=== PATIENT | male | born 1995 | race Caucasian/White ===

== ENCOUNTER 2019-01-31 10:26 | Inpatient (IN) | payer SELFPAY ==
[2019-01-31] MEDS ORDERED: CLINDAMYCIN 600 MG/D5W RTU 600 MG/50 ML RTUPB IV ONE (10:46)
[2019-01-31] MEDS ORDERED: ACETAMINOPHEN 325 MG TABLET PO ONE (10:47)
--- NOTE | 2019-01-31 10:50 | ER Document Report ---
ED Medical Screen (RME) - General Chief Complaint: Hand Injury Stated Complaint: HAND PAIN Time Seen by Provider: 01/31/19 10:39 Mode of Arrival: Ambulatory Information source: Patient Notes: Patient is a 23-year-old male who presents to the emergency department with complaints of right hand pain. Patient reports he thought he had an abscess to his right hand. He states he went to another hospital yesterday and had it drained. He states that not much drained out at the time. They gave him a dose of Keflex and discharged him home. Patient reports he has not had his medications filled and the pain and swelling has increased significantly since then. Patient denies any fevers. Exam: Significant swelling to right hand. Limited range of motion to right hand. Strong radial pulse. Cap refill less than 3 seconds. Patient reports allergies to multiple pain medications and has a small child present with him that he is responsible for. Will order acetaminophen at this time. I have greeted and performed a rapid initial assessment of this patient. A comprehensive ED assessment and evaluation of the patient, analysis of test results and completion of the medical decision making process will be conducted by additional ED providers. Dictation of this chart was performed using voice recognition software; therefore, there may be some unintended grammatical errors. TRAVEL OUTSIDE OF THE [place] IN LAST 30 DAYS: No - Related Data Allergies/Adverse Reactions: Iodinated Contrast- Oral and IV Dye Allergy (Verified 01/31/19 10:32) Flushing latex Allergy (Verified 01/31/19 10:32) Urticaria prednisone Allergy (Verified 01/31/19 10:32) Bradycardia hydrocodone Adverse Reaction (Mild, Verified 01/31/19 10:32) Generalized Itching ketorolac [From Toradol] Adverse Reaction (Mild, Verified 01/31/19 10:32) Generalized Itching tramadol [From Ultram] Adverse Reaction (Mild, Verified 01/31/19 10:32) Generalized Itching Physical Exam - Vital signs Vitals: Temp Pulse Resp BP Pulse Ox 98.6 F 110 H 16 147/82 H 98 01/31/19 10:35 01/31/19 10:35 01/31/19 10:35 01/31/19 10:35 01/31/19 10:35 Course - Vital Signs Vital signs: Temp Pulse Resp BP Pulse Ox 98.6 F 110 H 16 147/82 H 98 01/31/19 10:35 01/31/19 10:35 01/31/19 10:35 01/31/19 10:35 01/31/19 10:35
--- NOTE | 2019-01-31 11:21 | RADIOLOGY REPORT (SQ) ---
EXAM DESCRIPTION: HAND RIGHT 3 VIEWS COMPLETED DATE/TIME: 01/31/2019 11:02 am REASON FOR STUDY: eval for osteomyelitis COMPARISON: None. EXAM PARAMETERS: NUMBER OF VIEWS: Three views. TECHNIQUE: AP, lateral and oblique radiographic images acquired of the right hand. LIMITATIONS: None. FINDINGS: MINERALIZATION: Normal. BONES: No acute fracture, destruction of bone, or dislocation. No worrisome bone lesions. JOINTS: No effusions. SOFT TISSUES: No soft tissue swelling. No foreign body. OTHER: No other significant finding. IMPRESSION: 1. NEGATIVE STUDY OF THE RIGHT HAND. TECHNICAL DOCUMENTATION: JOB ID: [id number] [employer]- All Rights Reserved Reading location - IP/workstation name: [email or web address]
[2019-01-31 11:40] LABS: ABSOLUTE BASOPHILS # (AUTO) 0.1 10^3/uL (0.0-0.2); ABSOLUTE EOSINOPHILS # (AUTO) 0.4 10^3/uL (0.0-0.6); ABSOLUTE LYMPHOCYTES (AUTO) 2.9 10^3/uL (0.5-4.7); ABSOLUTE NEUT (AUTO) 7.9 10^3/uL (1.7-8.2); BASOPHILS % (AUTO) 0.9 % (0-2); EOSINOPHILS % (AUTO) 3.1 % (0-6); HEMATOCRIT 38.1 % (37.9-51.0); HEMOGLOBIN 13.4 g/dL (13.5-17.0); LYMPHOCYTES % (AUTO) 23.4 % (13-45); MEAN CORPUSCULAR HEMOGLOBIN 30.4 pg (27.0-33.4); MEAN CORPUSCULAR HGB CONC 35.3 g/dL (32.0-36.0); MEAN CORPUSCULAR VOLUME 86 fl (80-97); MONOCYTES % (AUTO) 8.4 % (3-13); PLATELET COUNT 285 10^3/uL (150-450); RED BLOOD COUNT 4.42 10^6/uL (4.35-5.55); RED CELL DISTRIBUTION WIDTH 13.2 % (11.5-14.0); SEGMENTED NEUTROPHILS % (AUTO) 64.2 % (42-78); TOTAL CELLS COUNTED % (AUTO) 100 %; WHITE BLOOD COUNT 12.3 10^3/uL (4.0-10.5)
[2019-01-31] MEDS ORDERED: MORPHINE SULFATE 10 MG/ML INJ IV ONE (11:40)
[2019-01-31] MEDS ORDERED: ONDANSETRON HCL INJ/PF 4 MG/2 ML SDV IV ONE (11:40)
[2019-01-31 11:57] LABS: ALANINE AMINOTRANSFERASE 18 U/L (21-72); ALBUMIN 4.2 g/dL (3.5-5.0); ALKALINE PHOSPHATASE 74 U/L (38-126); ANION GAP 8 (5-19); ASPARTATE AMINO TRANSFERASE 25 U/L (17-59); BILIRUBIN,DIRECT 0.3 mg/dL (0.0-0.4); BILIRUBIN,TOTAL 0.4 mg/dL (0.2-1.3); BLOOD UREA NITROGEN 20 mg/dL (7-20); C-REACTIVE PROTEIN 34.2 mg/L (<10.0); CALCIUM 9.4 mg/dL (8.4-10.2); CARBON DIOXIDE 26 mmol/L (22-30); CHLORIDE 103 mmol/L (98-107); GLUCOSE 90 mg/dL (75-110); POTASSIUM 4.4 mmol/L (3.6-5.0); SODIUM 136.8 mmol/L (137-145); TOTAL PROTEIN 7.2 g/dL (6.3-8.2)
[2019-01-31 12:17] LABS: ERYTHROCYTE SEDIMENTATION RATE 24 mm/hr (0-15)
[2019-01-31] MEDS ORDERED: HYDROMORPHONE HCL INJ/PF 2 MG/ML AMPULE IV ONE ×2 (12:39→16:14)
[2019-01-31] MEDS ORDERED: SUCCINYLCHOLINE CHLORIDE INJ 200 MG/10 ML VIAL ONE (13:55)
--- NOTE | 2019-01-31 15:13 | ER Document Report ---
Entered by JAMES WILKINS SCRIBE 01/31/19 1138 Acting as scribe for:SENTHIL MASON MD ED General - General Chief Complaint: Hand Injury Stated Complaint: HAND PAIN Time Seen by Provider: 01/31/19 10:39 Mode of Arrival: Ambulatory Information source: Patient Notes: Patient is a 23 year old male presenting to the emergency department complaining of right hand pain onset 2 days ago. Patient states he obtained a blister on the palmar aspect of his right hand on January 07 while using a rehan hammer. He states 2 days ago, he accidentally hit the blister with a crowbar and gradually developed pain and swelling to the area. Patient states he presented to [facility] yesterday where a superficial incision was made and blood was expressed from the area. He states today, the pain and swelling has significantly increased further stating he can not close his fist or move his fingers due to pain. TRAVEL OUTSIDE OF THE [place] IN LAST 30 DAYS: No - Related Data Allergies/Adverse Reactions: Iodinated Contrast- Oral and IV Dye Allergy (Verified 01/31/19 10:32) Flushing latex Allergy (Verified 01/31/19 10:32) Urticaria prednisone Allergy (Verified 01/31/19 10:32) Bradycardia hydrocodone Adverse Reaction (Mild, Verified 01/31/19 10:32) Generalized Itching ketorolac [From Toradol] Adverse Reaction (Mild, Verified 01/31/19 10:32) Generalized Itching tramadol [From Ultram] Adverse Reaction (Mild, Verified 01/31/19 10:32) Generalized Itching Past Medical History - General Information source: Patient - Social History Smoking Status: Current Every Day Smoker Cigarette use (# per day): No - E-cig Chew tobacco use (# tins/day): No Frequency of alcohol use: None Drug Abuse: None Family History: Reviewed & Not Pertinent Patient has suicidal ideation: No Patient has homicidal ideation: No Pulmonary Medical History: Reports: Hx Asthma - Childhood Neurological Medical History: Reports: Hx Migraine GI Medical History: Reports: Hx Gastroesophageal Reflux Disease Past Surgical History: Reports: Hx Appendectomy, Hx Nose Surgery - reconstructive surgery to nose d/t fracture Review of Systems - Review of Systems Constitutional: No symptoms reported EENT: No symptoms reported Cardiovascular: No symptoms reported Respiratory: No symptoms reported Gastrointestinal: No symptoms reported Genitourinary: No symptoms reported Male Genitourinary: No symptoms reported Musculoskeletal: See HPI Skin: No symptoms reported Hematologic/Lymphatic: No symptoms reported Neurological/Psychological: No symptoms reported -: Yes All other systems reviewed and negative Physical Exam - Vital signs Vitals: Temp Pulse Resp BP Pulse Ox 98.6 F 110 H 16 147/82 H 98 01/31/19 10:35 01/31/19 10:35 01/31/19 10:35 01/31/19 10:35 01/31/19 10:35 - Notes Notes: GENERAL: Alert, interacts well. No acute distress. HEAD: Normocephalic, atraumatic. EYES: Pupils equal, round, and reactive to light. Extraocular movements intact. ENT: Oral mucosa moist, tongue midline. NECK: Full range of motion. Supple. Trachea midline. LUNGS: Clear to auscultation bilaterally, no wheezes, rales, or rhonchi. No respiratory distress. HEART: Regular rate and rhythm. No murmurs, gallops, or rubs. ABDOMEN: Soft, non-tender. Non-distended. Bowel sounds present in all 4 gayathri drants. No guarding, rigidity, or rebound. EXTREMITIES: Moves all 4 extremities spontaneously. Right thenar eminence contains a swollen, firm erythematous area with blistering skin, which appears to have been partially opened and is tender to palpate. Patient complains of pain in right distal volar wrist with extension of right index and 1st fingers. Tender to palpate right flexor tendons, passive flexion of right fingers cause more pain. NEUROLOGICAL: Alert and oriented x3. Normal speech. PSYCH: Normal affect, normal mood. SKIN: Warm, dry, normal turgor. No rashes or lesions noted. Course - Vital Signs Vital signs: Temp Pulse Resp BP Pulse Ox 97.4 F 84 20 125/78 98 01/31/19 15:51 01/31/19 15:51 01/31/19 15:51 01/31/19 15:51 01/31/19 15:51 - Laboratory Result Diagrams: 01/31/19 11:09 01/31/19 11:09 Laboratory results interpreted by me: 01/31/19 01/31/19 11:09 11:09 WBC 12.3 H Hgb 13.4 L ESR 24 H Sodium 136.8 L ALT 18 L C-Reactive Protein 34.2 H - Diagnostic Test Radiology reviewed: Image reviewed - MRI shows an 8 mm pocket of fluid in the superficial fat. There is enhancement of the thenar muscle suggesting a myositis. There is enhancement along the flexor tendons going to the index finger and thumb. - Consults Dr. Hester Time consulted: 16:00 Consulted provider: will see as inpatient Discharge - Discharge Clinical Impression: Abscess of right hand, Flexor tendinitis of hand Condition: Stable Disposition: ADMITTED INPATIENT Admitting Provider: Dr. Hester Unit Admitted: Surgical Floor Scribe Attestation: 01/31/19 13:19 I personally performed the services described in the documentation, reviewed and edited the documentation which was dictated to the scribe in my presence, and it accurately records my words and actions. I personally performed the services described in the documentation, reviewed and edited the documentation which was dictated to the scribe in my presence, and it accurately records my words and actions.
--- NOTE | 2019-01-31 16:12 | RADIOLOGY REPORT (SQ) ---
EXAM DESCRIPTION: MRI RT UPPER EXTREMITY COMBO COMPLETED DATE/TIME: 01/31/2019 3:40 pm REASON FOR STUDY: Right hand deep space thenar infection COMPARISON: Right hand plain films 01/31/2019 TECHNIQUE: Right hand MRI was performed without and with gadolinium contrast to include axial and co [place] T1 pre and post-contrast images, coronal and axial T2 weighted images. Patient would not tolerate further imaging. Patient was injected with 15 mL of Dotarem gadolinium. Estimated GFR greater than 60 LIMITATIONS: None. FINDINGS: Diffuse cellulitis is present over the right thenar eminence, extending into the soft ti ssue web between the thumb and index finger. On axial T1 postcontrast series 14, image 13, a tiny br eak in the palmar skin is present, with an 8 to 9 mm nonenhancing subcutaneous abscess or hematoma. There is diffuse enhancement throughout the thenar muscles without intramuscular abscess. Distal to the carpal tunnel, there is mild contrast enhancement along the flexor tendon sheaths to th e index finger and thumb. This is best shown on axial postcontrast images 14 through 18. No underlying bone marrow signal abnormalities worrisome for occult fracture or osteomyelitis. Limit ed view of the radiocarpal joint, intercarpal joints, carpometacarpal and MCP joints in the field of view are unremarkable. Results discussed with Dr. Menjivar IMPRESSION: Cellulitis right thenar eminence with small 8 to 9 mm subcutaneous abscess or hematoma Underlying myositis with diffuse enhancement of the thenar muscles Mild contrast enhancement along the flexor tendon sheath of the index finger and thumb distal to the carpal tunnel. TECHNICAL DOCUMENTATION: JOB ID: [id number] [employer]- All Rights Reserved Reading location - IP/workstation name: [email or web address]
--- NOTE | 2019-01-31 17:43 | PDOC H&P ---
History of Present Illness Admission Date/PCP: 01/31/19 16:13 Patient complains of: Right hand pain History of Present Illness: LYNDON LOVE is a 23 year old male who sustained injury to his hand months ago from a jackhammer that caused a blister. And then recently he injured his hand again with a crowbar. The hand began swelling much worse. Was seen at the [facility] emergency room where a very limited I&D apparently was performed since then has had increasing pain along the palm of his hand with significant tightness along with erythema which has tracked up into his forearm. Notes numbness and tingling along the tips of the digits. Has had chills and sweats as well. Pain 08/04. Past Medical History Pulmonary Medical History: Reports: Asthma - Childhood Neurological Medical History: Reports: Migraine GI Medical History: Reports: Gastroesophageal Reflux Disease Past Surgical History Past Surgical History: Reports: Appendectomy Social History Smoking Status: Current Every Day Smoker Family History Family History: Reviewed & Not Pertinent Parental Family History Reviewed: No Children Family History Reviewed: No Sibling(s) Family History Reviewed.: No Medication/Allergy Home Medications: No Home Medications 01/31/19 Allergies/Adverse Reactions: Iodinated Contrast- Oral and IV Dye Allergy (Verified 01/31/19 10:32) Flushing latex Allergy (Verified 01/31/19 10:32) Urticaria prednisone Allergy (Verified 01/31/19 10:32) Bradycardia hydrocodone Adverse Reaction (Mild, Verified 01/31/19 10:32) Generalized Itching ketorolac [From Toradol] Adverse Reaction (Mild, Verified 01/31/19 10:32) Generalized Itching tramadol [From Ultram] Adverse Reaction (Mild, Verified 01/31/19 10:32) Generalized Itching Review of Systems Constitutional: PRESENT: fever(s), night sweats Eyes: ABSENT: visual disturbances Ears: ABSENT: hearing changes Cardiovascular: ABSENT: chest pain, dyspnea on exertion, edema, orthropnea, palpitations Respiratory: ABSENT: cough, hemoptysis Gastrointestinal: ABSENT: abdominal pain, constipation, diarrhea, hematemesis, hematochezia, nausea, vomiting Genitourinary: ABSENT: dysuria, hematuria Musculoskeletal: PRESENT: as per HPI Integumentary: ABSENT: rash, wounds Neurological: ABSENT: abnormal gait, abnormal speech, confusion, dizziness, focal weakness, syncope Psychiatric: ABSENT: anxiety, depression, homidical ideation, suicidal ideation Endocrine: ABSENT: cold intolerance, heat intolerance, menstrual abnormalities, polydipsia, polyuria Hematologic/Lymphatic: ABSENT: easy bleeding, easy bruising, lymphadenopathy Physical Exam Vital Signs: Temp Pulse Resp BP Pulse Ox 97.4 F 84 20 125/78 98 01/31/19 15:51 01/31/19 15:51 01/31/19 15:51 01/31/19 15:51 01/31/19 15:51 Intake & Output 01/30/19 01/31/19 02/01/19 06:59 06:59 06:59 Intake Total 50 Balance 50 Weight 92.2 kg General appearance: PRESENT: no acute distress, well-developed, well-nourished Head exam: PRESENT: atraumatic, normocephalic Eye exam: PRESENT: conjunctiva pink, EOMI, PERRLA. ABSENT: scleral icterus Ear exam: PRESENT: normal external ear exam Mouth exam: PRESENT: moist, tongue midline Neck exam: PRESENT: full ROM. ABSENT: carotid bruit, JVD, lymphadenopathy, thyromegaly Cardiovascular exam: PRESENT: RRR. ABSENT: diastolic murmur, rubs, systolic murmur Pulses: PRESENT: normal dorsalis pedis pul, +2 pedal pulses bilateral Vascular exam: PRESENT: normal capillary refill GI/Abdominal exam: PRESENT: normal bowel sounds, soft. ABSENT: distended, guarding, mass, organolmegaly, rebound, tenderness Rectal exam: PRESENT: deferred Musculoskeletal exam: PRESENT: other - Right hand: Significant swelling on the thenar eminence. Mild pain along the A1 rachel to the index finger along the flexor sheath of the thumb. No active purulence. Palpable fluctuance along the thenar eminence. No tenderness along the hypo-thenar eminence. Hypoesthesia on the distal tip of the index, middle and small finger. Cap refill less than 2 seconds. No pain with passive stretch of the middle ring and small finger pain with stretch of the index. Neurological exam: PRESENT: alert, awake, oriented to person, oriented to place, oriented to time, oriented to situation, CN II-XII grossly intact. ABSENT: motor sensory deficit Psychiatric exam: PRESENT: appropriate affect, normal mood. ABSENT: homicidal ideation, suicidal ideation Skin exam: PRESENT: dry, intact, warm. ABSENT: cyanosis, rash Results Laboratory Results: 01/31/19 11:09 01/31/19 11:09 01/31/19 01/31/19 11:09 11:09 WBC 12.3 H RBC 4.42 Hgb 13.4 L Hct 38.1 MCV 86 MCH 30.4 MCHC 35.3 RDW 13.2 Plt Count 285 Seg Neutrophils % 64.2 Lymphocytes % 23.4 Monocytes % 8.4 Eosinophils % 3.1 Basophils % 0.9 Absolute Neutrophils 7.9 Absolute Lymphocytes 2.9 Absolute Monocytes 1.0 Absolute Eosinophils 0.4 Absolute Basophils 0.1 Sodium 136.8 L Potassium 4.4 Chloride 103 Carbon Dioxide 26 Anion Gap 8 BUN 20 Creatinine 0.78 Est GFR ( Amer) > 60 Est GFR (Non-Af Amer) > 60 Glucose 90 Calcium 9.4 Total Bilirubin 0.4 AST 25 ALT 18 L Alkaline Phosphatase 74 C-Reactive Protein 34.2 H Total Protein 7.2 Albumin 4.2 Impressions: Hand X-Ray 01/31/19 10:47 IMPRESSION: 1. NEGATIVE STUDY OF THE RIGHT HAND. Upper Extremity MRI 01/31/19 11:36 IMPRESSION: Cellulitis right thenar eminence with small 8 to 9 mm subcutaneous abscess or hematoma Underlying myositis with diffuse enhancement of the thenar muscles Mild contrast enhancement along the flexor tendon sheath of the index finger and thumb distal to the carpal tunnel. Assessment & Plan - Diagnosis (1) Abscess of right hand Is this a current diagnosis for this admission?: Yes Plan: Patient has evidence of a thenar abscess there is concern this could proceed to Parona's space causing worsening infection and limb threatening injury. At this point we have discussed treatment options and decision was made to proceed with operative intervention which includes irrigation and debridement right hand. Risks and benefits of the surgery procedure, postoperative outcomes and expectations of also been explained. Patient will require IV antibiotics until cultures are finalized and patient is seeing clinical improvement. Patient has verbalized understanding consented for surgical procedure.
[2019-01-31] MEDS ORDERED: DEXTROSE 40% GEL 15 GM TUBE PO PRN ×2 (17:44)
[2019-01-31] MEDS ORDERED: GLUCAGON,HUMAN RECOMB 1 MG INJ SUBCUT PRN (17:44)
[2019-01-31] MEDS ORDERED: DEXTROSE 50%-WATER 25 GM/50 ML DISP.SYRIN IV PRN ×2 (17:44)
[2019-01-31] MEDS ORDERED: ONDANSETRON HCL INJ/PF 4 MG/2 ML SDV IV PRN ×2 (17:46→18:35)
[2019-01-31] MEDS ORDERED: FENTANYL CITRATE INJ/PF 100 MCG/2 ML AMPUL ONE (17:50)
[2019-01-31] MEDS ORDERED: PROPOFOL INJ 200 MG/20 ML VIAL IV ONE (17:50)
[2019-01-31] MEDS ORDERED: MIDAZOLAM 2 MG/2 ML INJ ONE (17:50)
[2019-01-31] MEDS ORDERED: LIDOCAINE 2% INJ (20 MG/ML) 20 ML MDV ONE (17:52)
[2019-01-31] MEDS ORDERED: BUPIVACAINE HCL 0.5 % INJ/PF 30 ML SDV ONE (18:19)
[2019-01-31] MEDS ORDERED: MORPHINE SULFATE 10 MG/ML INJ IV PRN (18:35)
[2019-01-31] MEDS ORDERED: FENTANYL CITRATE INJ/PF 100 MCG/2 ML AMPUL IV PRN ×3 (18:35)
[2019-01-31] MEDS ORDERED: PROMETHAZINE HCL INJ 25 MG/1 ML VIAL IV PRN ×2 (18:35)
[2019-01-31] MEDS ORDERED: DIPHENHYDRAMINE HCL 50 MG/ML VIAL IV PRN (18:35)
[2019-01-31] MEDS ORDERED: MEPERIDINE HCL/PF INJ 25 MG/1 ML DISP.SYRIN IV PRN (18:35)
[2019-01-31] MEDS ORDERED: HYDROMORPHONE HCL INJ/PF 2 MG/ML AMPULE ONE (18:38)
--- NOTE | 2019-01-31 19:08 | Operative Report ---
Operative Report DATE OF SURGERY: 01/31/19 PREOPERATIVE DIAGNOSIS: Right thenar abscess POSTOPERATIVE DIAGNOSIS: Right thenar abscess with early flexor tenosynovitis index/thumb, palmar abscess along carpal tunnel OPERATION: 1. Irrigation debridement debridement thenar abscess. 2. Open carpal tunnel release. 3. Irrigation debridement tendon sheath index finger SURGEON: ROMMEL PAINTING ANESTHESIA: GA TISSUE REMOVED OR ALTERED: Aerobic, anaerobic, AFB and fungal COMPLICATIONS: None ESTIMATED BLOOD LOSS: Minimal INTRAOPERATIVE FINDINGS: Purulent abscess along the subcutaneous tissues tracking deep into the thenar musculature with extension into the index flexor sheath, carpal canal and FPL sheath PROCEDURE: Indication for above procedure: 23-year-old male who developed a blister along the palm of his hand unfortunately continued to increase in size causing considerable pain and di scomfort. On examination patient had fairly swollen thenar eminence consistent with thenar abscess at that point decision was made to proceed with operative intervention. Procedure In Detail: Patient was seen and evaluated in the preoperative holding area. The upper extremity was initialized and marked. Patient received clindamycin IV for bacterial prophylaxis, in the ER. Patient was taken back to the operative room where transferred to the operative table and placed under general anesthesia. Once they were adequately anesthetized a nonsterile tourniquet was placed on the upper extremity. A surgical team debriefing was performed ensuring all instrumentation was available, the surgical procedure was discussed with possible concerns reviewed. The upper extremity was prepped with Betadine and draped in a sterile fashion. A timeout was done identifying correct patient, procedure and extremity everyone in attendance agree with this and verbalized no concerns. The extremity was elevated the tourniquet was inflated to 250 mmHg. Longitudinal skin incision was made along the thenar eminence. Blunt dissection was performed. Purulent material was encountered within the subcutaneous tissues however sinus tract was followed deep into the FPL tendon sheath. Incision was then extended over the A1 archel of the thumb and the A1 rachel release decompressing fluid within the flexor sheath of the FPL tendon. This area was then copiously irrigated with normal saline and any residual fluid within the sheath was milked from distal to proximal there is no further fluid within the flexor sheath appreciated at this level. Separate oblique skin incision was made along the A1 rachel of the index finger. Blunt dissection was once again performed radial and ulnar neurovascular bun dles identified and retracted. The A1 rachel was then released there was cloudy appearing fluid within the sheath extending from a proximal to distal direction there was no fluid appreciated from a distal to proximal direction. This area was copiously irrigated with normal saline once again. Given the extensive nature of the thenar eminence abscess and fluid within the index and thumb decision was made to proceed with open carpal tunnel release. Longitudinal skin incision was made along the radial border of the ring finger. Blunt dissection was performed. Palmar fascia was then incised in the transverse carpal ligament identified. Transverse carpal ligament was then released distally to the adipose protecting the superficial palmar arch and proximally including the volar antebrachial fascia. Within the flexor sheath there is significant flexor tenosynovitis and thus flexor tenosynovectomy was performed. There was cloudy appearing fluid but no gross purulence at this level. Wound was then copiously irrigated with normal saline and tenosynovium was sent for culture as well. Median nerve was identified along the radial border of the transverse carpal ligament without evidence of involvement. Any peripheral bleeding was controlled with bipolar cautery. Matt drain was then placed from the thenar eminence into the carpal canal and from the thenar eminence into the index finger. Skin incisions were closed with interrupted 3-0 nylon suture. 30 cc of 0.5% bupivacaine without epinephrine was injected for postoperative pain control. Wound was dressed Xeroform 4 x 4's and a soft dressing. Tourniquet was deflated. Patient good peripheral perfusion. Sponge counts, instrument counts, needle counts were correct. Patient was then awoken from anesthesia. Transferred from the operating room table to the operating room stretcher. There was no intraoperative complications patient tolerated procedure well stable to PACU. Postop plan: Patient will be admitted for IV antibiotics times 24 hours. Once cultures complete and sensitivities known will likely discharge home on p.o. antibiotics.
[2019-01-31] MEDS: MORPHINE SULFATE 10 MG/ML INJ IV PRN (20:55)
[2019-01-31] MEDS: PIPERACILLIN SODIUM/TAZOBACTAM 3.375 GM in NORMAL SALINE 100 ML IV SCH (21:13)
[2019-01-31] MEDS: OXYCODONE-ACETAMINOPHEN 5-325 MG TABLET PO PRN (22:23)
[2019-01-31] MEDS: VANCOMYCIN HCL 1,000 MG in DEXTROSE 5%-WATER 250 ML IV SCH (22:26)
[2019-02-01] MEDS ORDERED: PIPERACILLIN/TAZOBACTAM 3.375 GM VIAL IV SCH
[2019-02-01] MEDS: MORPHINE SULFATE 10 MG/ML INJ IV PRN (01:05)
[2019-02-01] MEDS: OXYCODONE-ACETAMINOPHEN 5-325 MG TABLET PO PRN ×2 (02:57→20:29)
[2019-02-01] MEDS: PIPERACILLIN SODIUM/TAZOBACTAM 3.375 GM in NORMAL SALINE 100 ML IV SCH ×4 (02:58→20:30)
[2019-02-01] MEDS ORDERED: HYDROMORPHONE HCL INJ/PF 2 MG/ML AMPULE ONE (03:11)
[2019-02-01] MEDS: HYDROMORPHONE HCL INJ/PF 2 MG/ML AMPULE IV PRN ×5 (03:14→23:38)
[2019-02-01] MEDS: VANCOMYCIN HCL 1,000 MG in DEXTROSE 5%-WATER 250 ML IV SCH ×3 (05:44→21:31)
[2019-02-01 07:33] LABS: ABSOLUTE BASOPHILS # (AUTO) 0.1 10^3/uL (0.0-0.2); ABSOLUTE EOSINOPHILS # (AUTO) 0.1 10^3/uL (0.0-0.6); ABSOLUTE LYMPHOCYTES (AUTO) 1.7 10^3/uL (0.5-4.7); ABSOLUTE NEUT (AUTO) 11.4 10^3/uL (1.7-8.2); BASOPHILS % (AUTO) 0.5 % (0-2); EOSINOPHILS % (AUTO) 0.8 % (0-6); HEMATOCRIT 39.3 % (37.9-51.0); HEMOGLOBIN 13.6 g/dL (13.5-17.0); MEAN CORPUSCULAR HEMOGLOBIN 30.2 pg (27.0-33.4); MEAN CORPUSCULAR HGB CONC 34.7 g/dL (32.0-36.0); MEAN CORPUSCULAR VOLUME 87 fl (80-97); MONOCYTES % (AUTO) 7.2 % (3-13); PLATELET COUNT 276 10^3/uL (150-450); RED BLOOD COUNT 4.52 10^6/uL (4.35-5.55); RED CELL DISTRIBUTION WIDTH 12.8 % (11.5-14.0); SEGMENTED NEUTROPHILS % (AUTO) 79.5 % (42-78); TOTAL CELLS COUNTED % (AUTO) 100 %; WHITE BLOOD COUNT 14.3 10^3/uL (4.0-10.5)
[2019-02-01] MEDS ORDERED: VANCOMYCIN HCL INJ 1000 MG VIAL IV SCH (10:00)
[2019-02-01] MEDS: OXYCODONE HCL SR 10 MG TABLET PO SCH ×2 (10:52→18:31)
--- NOTE | 2019-02-01 12:43 | PDOC PROGRESS REPORT ---
Subjective Progress Note for:: 02/01/19 Subjective:: Patient states he had considerable pain earlier this morning but that has improved after loosening the bandage. Denies fever chills or sweats. Still complains of numbness tingling and pressure in his digits which is relatively unchanged compared to preoperative subjective symptoms. Reason For Visit: RIGHT HAND ABSCESS Physical Exam Vital Signs: Temp Pulse Resp BP Pulse Ox 99.8 F 93 16 130/82 H 94 02/01/19 11:50 02/01/19 11:50 02/01/19 11:50 02/01/19 11:50 02/01/19 11:50 Pulse Oximeter Continuous Start: 01/31/19 20 :32 Freq: RTQ4 Status: Complete Protocol: Document 01/31/19 20:25 [facility] (Rec: 01/31/19 20:34 [facility] [id number]) Pulse Oximetry Assessment Oxygen Saturation (92-100) 98 Oxygen Delivery Method Room Air Fraction of Inspired Oxygen (FIO2) 21 Equipment Usage Initial Set Up Continuous Pulse Oximeter 24 Hour Charge Charge Now Continuous SpO2 Machine # 13 Pulse Oximeter Continuous Start: 01/31/19 19:48 Freq: RTQ4 Status: Active Protocol: Document 02/01/19 08:54 [facility] [place] (Rec: 02/01/19 08:56 [facility] [id number]) Pulse Oximetry Assessment Oxygen Saturation (92-100) 97 Oxygen Delivery Method Room Air Fraction of Inspired Oxygen (FIO2) 21 Equipment Usage Equipment in Use Continuous Pulse Oximeter 24 Hour Charge Charge Now Continuous SpO2 Machine # N 13 Additional RT Notes Other spo2 remains in room as pt sleepy, will dc next visit Intake & Output 01/31/19 02/01/19 02/02/19 06:59 06:59 06:59 Intake Total 4750 Output Total 1005 Balance 3745 Weight 93.8 kg Musculoskeletal exam: PRESENT: other - Right hand: Dressing removed today. Swelling noted along the thenar eminence. No active drainage. Drains remain intact. Intact sharp versus light touch throughout all digits. Cap refill less than 2 seconds. Pain with attempted motion. No streaking erythema proximal to the wrist flexion crease. Results Laboratory Results: 02/01/19 06:12 01/31/19 11:09 02/01/19 06:12 WBC 14.3 H RBC 4.52 Hgb 13.6 Hct 39.3 MCV 87 MCH 30.2 MCHC 34.7 RDW 12.8 Plt Count 276 Seg Neutrophils % 79.5 H Lymphocytes % 12.0 L Monocytes % 7.2 Eosinophils % 0.8 Basophils % 0.5 Absolute Neutrophils 11.4 H Absolute Lymphocytes 1.7 Absolute Monocytes 1.0 Absolute Eosinophils 0.1 Absolute Basophils 0.1 Impressions: Hand X-Ray 01/31/19 10:47 IMPRESSION: 1. NEGATIVE STUDY OF THE RIGHT HAND. Upper Extremity MRI 01/31/19 11:36 IMPRESSION: Cellulitis right thenar eminence with small 8 to 9 mm subcutaneous abscess or hematoma Underlying myositis with diffuse enhancement of the thenar muscles Mild contrast enhancement along the flexor tendon sheath of the index finger and thumb distal to the carpal tunnel. Assessment & Plan - Diagnosis (1) Abscess of right hand Is this a current diagnosis for this admission?: Yes Plan: Postop day 1 status post irrigation debridement right hand palmar/thenar abscess Continue IV vancomycin and Zosyn given the severity of patient's infection he may require longer IV antibiotics but did not feel he requires home IV antibiotics. Once patient sees improvement clinically may be discharged home on p.o. antibiotics. Anticipate discharge on 02/03/19
[2019-02-02] MEDS: PIPERACILLIN SODIUM/TAZOBACTAM 3.375 GM in NORMAL SALINE 100 ML IV SCH ×2 (03:49→09:05)
[2019-02-02] MEDS: OXYCODONE-ACETAMINOPHEN 5-325 MG TABLET PO PRN ×4 (03:49→22:27)
[2019-02-02] MEDS: HYDROMORPHONE HCL INJ/PF 2 MG/ML AMPULE IV PRN ×4 (06:17→23:53)
[2019-02-02] MEDS: VANCOMYCIN HCL 1,000 MG in DEXTROSE 5%-WATER 250 ML IV SCH ×2 (06:18→14:32)
[2019-02-02 06:53] LABS: ABSOLUTE BASOPHILS # (AUTO) 0.1 10^3/uL (0.0-0.2); ABSOLUTE EOSINOPHILS # (AUTO) 0.3 10^3/uL (0.0-0.6); ABSOLUTE LYMPHOCYTES (AUTO) 2.4 10^3/uL (0.5-4.7); ABSOLUTE MONOCYTES (AUTO) 0.9 10^3/uL (0.1-1.4); ABSOLUTE NEUT (AUTO) 3.9 10^3/uL (1.7-8.2); BASOPHILS % (AUTO) 0.9 % (0-2); EOSINOPHILS % (AUTO) 4.6 % (0-6); HEMATOCRIT 38.1 % (37.9-51.0); HEMOGLOBIN 13.3 g/dL (13.5-17.0); LYMPHOCYTES % (AUTO) 32.1 % (13-45); MEAN CORPUSCULAR HEMOGLOBIN 30.1 pg (27.0-33.4); MEAN CORPUSCULAR HGB CONC 34.9 g/dL (32.0-36.0); MEAN CORPUSCULAR VOLUME 86 fl (80-97); MONOCYTES % (AUTO) 11.8 % (3-13); PLATELET COUNT 267 10^3/uL (150-450); RED BLOOD COUNT 4.41 10^6/uL (4.35-5.55); SEGMENTED NEUTROPHILS % (AUTO) 50.6 % (42-78); TOTAL CELLS COUNTED % (AUTO) 100 %; WHITE BLOOD COUNT 7.6 10^3/uL (4.0-10.5)
--- NOTE | 2019-02-02 07:19 | PDOC PROGRESS REPORT ---
Subjective Progress Note for:: 02/02/19 Reason For Visit: RIGHT HAND ABSCESS 23-year-old white male status post I&D of the right hand with cultures positive for gram-positive cocci in clusters. Patient on vancomycin to penicillin. Patient complains of pain this morning. Physical Exam Vital Signs: Temp Pulse Resp BP Pulse Ox 36.9 C 92 16 112/60 98 02/02/19 03:40 02/02/19 03:40 02/02/19 03:40 02/02/19 03:40 02/02/19 03:40 Pulse Oximeter Continuous Start: 01/31/19 20:32 Freq: RTQ4 Status: Complete Protocol: Document 01/31/19 20:25 [facility] (Rec: 01/31/19 20:34 [facility] [id number]) Pulse Oximetry Assessment Oxygen Saturation (92-100) 98 Oxygen Delivery Method Room Air Fraction of Inspired Oxygen (FIO2) 21 Equipment Usage Initial Set Up Continuous Pulse Oximeter 24 Hour Charge Charge Now Continuous SpO2 Machine # 13 Pulse Oximeter Continuous Start: 01/31/19 19:48 Freq: RTQ4 Status: Complete Protocol: Document 02/01/19 13:06 [facility] [place] (Rec: 02/01/19 13:06 [facility] [id number]) Pulse Oximetry Assessment Oxygen Saturation (92-100) 96 Oxygen Delivery Method Room Air Fraction of Inspired Oxygen (FIO2) 21 Equipment Usage Equipment Discontinued Continuous SpO2 Machine # N 13 Additional RT Notes Other dc per overnight order Intake & Output 02/01/19 02/02/19 02/03/19 06:59 06:59 06:59 Intake Total 4750 2530 Output Total 1005 Balance 3745 2530 Weight 93.8 kg 92.3 kg General appearance: PRESENT: no acute distress, mild distress Head exam: PRESENT: normocephalic Respiratory exam: PRESENT: unlabored Cardiovascular exam: PRESENT: RRR Vascular exam: PRESENT: normal capillary refill GI/Abdominal exam: PRESENT: soft Rectal exam: PRESENT: deferred Extremities exam: PRESENT: other - Right hand and Kerlix dressing. The brisk capillary refill each of the digits. Sensory examination is intact to light touch. Psychiatric exam: PRESENT: appropriate affect, normal mood. ABSENT: homicidal ideation, suicidal ideation Skin exam: PRESENT: dry, intact, warm. ABSENT: cyanosis, rash Results Laboratory Results: 02/02/19 06:35 01/31/19 11:09 02/01/19 02/02/19 06:12 06:35 WBC 14.3 H 7.6 RBC 4.52 4.41 Hgb 13.6 13.3 L Hct 39.3 38.1 MCV 87 86 MCH 30.2 30.1 MCHC 34.7 34.9 RDW 12.8 13.0 Plt Count 276 267 Seg Neutrophils % 79.5 H 50.6 Lymphocytes % 12.0 L 32.1 Monocytes % 7.2 11.8 Eosinophils % 0.8 4.6 Basophils % 0.5 0.9 Absolute Neutrophils 11.4 H 3.9 Absolute Lymphocytes 1.7 2.4 Absolute Monocytes 1.0 0.9 Absolute Eosinophils 0.1 0.3 Absolute Basophils 0.1 0.1 Impressions: Hand X-Ray 01/31/19 10:47 IMPRESSION: 1. NEGATIVE STUDY OF THE RIGHT HAND. Upper Extremity MRI 01/31/19 11:36 IMPRESSION: Cellulitis right thenar eminence with small 8 to 9 mm subcutaneous abscess or hematoma Underlying myositis with diffuse enhancement of the thenar muscles Mild contrast enhancement along the flexor tendon sheath of the index finger and thumb distal to the carpal tunnel. Status: Imported from PACS Assessment & Plan - Diagnosis (1) Abscess of right hand Is this a current diagnosis for this admission?: Yes Plan: Awaiting final culture results and sensitivity to adjust antibiotics
[2019-02-02] MEDS: OXYCODONE HCL SR 10 MG TABLET PO SCH ×2 (10:59→17:44)
[2019-02-02 11:33] LABS: VANCOMYCIN,TROUGH 14.4 ug/mL (5.0-20.0)
--- NOTE | 2019-02-02 15:04 | Progress Note ---
Provider Note Provider Note: ID Consult Note Asked to review chart by Pharmacy. Pt is a 23 year old man who was admitted on 01/31/19 with worsening R hand pain and swelling after injuring his hand with a crowbar with associated chills and sweats and development of paresthesias in some of his finger tips. He was afebrile but on exam had a palpable fluctuance of the thenar eminence and significant swelling and some hypoesthesia. MRI of the hand showed cellulitis of the R thenar eminence with a small possible abscess, enahncement of the thenar muscles, and enhancement tracking along the flexor tendon sheath to the carpal tunnel. The patient was taken to the OR for irregation and debridement of the thenar abscess, carpal tunnel release, flexor tenosynovectomy with irrigation of the cloudy fluid found, nickolas drain placement; intraoperative cultures were sent. MRSA has grown from the wound culture. Blood cultures are negative x 48h and leukocytosis has normalized. Pt has been on IV vancomycin empirically. Although vanc "trough" was 14.4 this morning, it was mis-timed, and when extrapolated by Pharmacy, he is not therapeutic, and he is estimated to need a high dose of vancomycin to be therapeutic. The vancomycin PAOLA was 2 for the MRSA isolate. Impression/Recommendations right thenar abscess with pyogenic flexor tenosynovitis due to methicillin- resistant Staphylococcus aureus (MRSA), s/p I&D - With the vancomycin doses he is estimated to need to be therapeutic, he is at high risk for nephrotoxicity. - With lack of bacteremia, switch to IV clindamycin 600 mg IV q8h while inpatient is reasonable and discharge on PO clindamycin 450 mg QID when ready to go home. - Duration of therapy is not well defined but typically 14 days; can extended by another week if slow response. Lopez Downey MD [facility] Infectious Diseases pager [phone]
[2019-02-02] MEDS ORDERED: VANCOMYCIN HCL 2,000 MG in DEXTROSE 5%-WATER 500 ML IV ONE (22:00)
[2019-02-03] MEDS: HYDROMORPHONE HCL INJ/PF 2 MG/ML AMPULE IV PRN ×3 (03:14→22:00)
[2019-02-03] MEDS ORDERED: VANCOMYCIN HCL 1,500 MG in DEXTROSE 5%-WATER 250 ML IV SCH (06:00)
[2019-02-03 06:38] LABS: ABSOLUTE BASOPHILS # (AUTO) 0.1 10^3/uL (0.0-0.2); ABSOLUTE EOSINOPHILS # (AUTO) 0.4 10^3/uL (0.0-0.6); ABSOLUTE LYMPHOCYTES (AUTO) 2.5 10^3/uL (0.5-4.7); ABSOLUTE MONOCYTES (AUTO) 0.7 10^3/uL (0.1-1.4); ABSOLUTE NEUT (AUTO) 2.8 10^3/uL (1.7-8.2); BASOPHILS % (AUTO) 1.1 % (0-2); HEMOGLOBIN 13.3 g/dL (13.5-17.0); LYMPHOCYTES % (AUTO) 38.8 % (13-45); MEAN CORPUSCULAR HEMOGLOBIN 30.1 pg (27.0-33.4); MEAN CORPUSCULAR VOLUME 86 fl (80-97); MONOCYTES % (AUTO) 11.1 % (3-13); PLATELET COUNT 285 10^3/uL (150-450); RED BLOOD COUNT 4.41 10^6/uL (4.35-5.55); RED CELL DISTRIBUTION WIDTH 12.5 % (11.5-14.0); TOTAL CELLS COUNTED % (AUTO) 100 %; WHITE BLOOD COUNT 6.5 10^3/uL (4.0-10.5)
[2019-02-03] MEDS: OXYCODONE-ACETAMINOPHEN 5-325 MG TABLET PO PRN ×2 (06:55→16:51)
--- NOTE | 2019-02-03 06:55 | PDOC PROGRESS REPORT ---
Subjective Progress Note for:: 02/03/19 Reason For Visit: RIGHT HAND ABSCESS 23-year-old white male status post I&D of a right hand abscess with cultures positive for MRSA. Physical Exam Vital Signs: Temp Pulse Resp BP Pulse Ox 36.6 C 103 H 22 H 135/98 H 100 02/03/19 03:29 02/03/19 03:29 02/03/19 03:29 02/03/19 03:29 02/03/19 03:29 Pulse Oximeter Continuous Start: 01/31/19 20:32 Freq: RTQ4 Status: Complete Protocol: Document 01/31/19 20:25 [facility] (Rec: 01/31/19 20:34 [facility] [id number]) Pulse Oximetry Assessment Oxygen Saturation (92-100) 98 Oxygen Delivery Method Room Air Fraction of Inspired Oxygen (FIO2) 21 Equipment Usage Initial Set Up Continuous Pulse Oximeter 24 Hour Charge Charge Now Continuous SpO2 Machine # 13 Pulse Oximeter Continuous Start: 01/31/19 19:48 Freq: RTQ4 Status: Complete Protocol: Document 02/01/19 13:06 [facility] [place]Rec: 02/01/19 13:06 [facility] [id number]) Pulse Oximetry Assessment Oxygen Saturation (92-100) 96 Oxygen Delivery Method Room Air Fraction of Inspired Oxygen (FIO2) 21 Equipment Usage Equipment Discontinued Continuous SpO2 Machine # N 13 Additional RT Notes Other dc per overnight order Intake & Output 02/01/19 02/02/19 02/03/19 06:59 06:59 06:59 Intake Total 4750 2530 3170 Output Total 1005 Balance 3745 2530 3170 Weight 93.8 kg 92.3 kg 92.4 kg Results Laboratory Results: 02/03/19 06:27 02/02/19 10:00 02/02/19 02/02/19 02/03/19 06:35 10:00 06:27 WBC 7.6 6.5 RBC 4.41 4.41 Hgb 13.3 L 13.3 L Hct 38.1 38.0 MCV 86 86 MCH 30.1 30.1 MCHC 34.9 35.0 RDW 13.0 12.5 Plt Count 267 285 Seg Neutrophils % 50.6 43.0 Lymphocytes % 32.1 38.8 Monocytes % 11.8 11.1 Eosinophils % 4.6 6.0 Basophils % 0.9 1.1 Absolute Neutrophils 3.9 2.8 Absolute Lymphocytes 2.4 2.5 Absolute Monocytes 0.9 0.7 Absolute Eosinophils 0.3 0.4 Absolute Basophils 0.1 0.1 Creatinine 0.73 Est GFR ( Amer) > 60 Est GFR (Non-Af Amer) > 60 01/31/19 18:26 Hand - Right Gram Stain - Final Impressions: Hand X-Ray 01/31/19 10:47 IMPRESSION: 1. NEGATIVE STUDY OF THE RIGHT HAND. Upper Extremity MRI 01/31/19 11:36 IMPRESSION: Cellulitis right thenar eminence with small 8 to 9 mm subcutaneous abscess or hematoma Underlying myositis with diffuse enhancement of the thenar muscles Mild contrast enhancement along the flexor tendon sheath of the index finger and thumb distal to the carpal tunnel. Assessment & Plan - Diagnosis (1) Abscess of right hand Is this a current diagnosis for this admission?: Yes Plan: Per ID recommendations vancomycin has been discontinued and clindamycin started. Nursing can change the dressing on a as needed basis.
[2019-02-03] MEDS: OXYCODONE HCL SR 10 MG TABLET PO SCH ×2 (09:12→19:13)
[2019-02-03] MEDS: CLINDAMYCIN 600 MG/D5W RTU 600 MG/50 ML RTUPB IV SCH ×2 (13:22→22:00)
[2019-02-03] MEDS ORDERED: DIPHENHYDRAMINE HCL 50 MG/ML VIAL IV PRN (15:05)
--- NOTE | 2019-02-03 15:11 | PDOC PROGRESS REPORT ---
Subjective Subjective:: Patient states he continues to have considerable discomfort in his right hand. Also complains of numbness throughout the fingertips. Mainly the thumb. States the numbness in his thumb is been unchanged since his date of presentation at [place]. States pain is worse at night and is unable to sleep. Reason For Visit: RIGHT HAND ABSCESS Physical Exam Vital Signs: Temp Pulse Resp BP Pulse Ox 98 F 94 18 134/88 H 97 02/03/19 11:00 02/03/19 11:00 02/03/19 11:00 02/03/19 11:00 02/03/19 11:00 Pulse Oximeter Continuous Start: 01/31/19 20:32 Freq: RTQ4 Status: Complete Protocol: Document 01/31/19 20:25 [facility] (Rec: 01/31/19 20:34 [facility] [id number]) Pulse Oximetry Assessment Oxygen Saturation (92-100) 98 Oxygen Delivery Method Room Air Fraction of Inspired Oxygen (FIO2) 21 Equipment Usage Initial Set Up Continuous Pulse Oximeter 24 Hour Charge Charge Now Continuous SpO2 Machine # 13 Pulse Oximeter Continuous Start: 01/31/19 19:48 Freq: RTQ4 Status: Complete Protocol: Document 02/01/19 13:06 [facility] [place] (Rec: 02/01/19 13:06 [facility] [id number]) Pulse Oximetry Assessment Oxygen Saturation (92-100) 96 Oxygen Delivery Method Room Air Fraction of Inspired Oxygen (FIO2) 21 Equipment Usage Equipment Discontinued Continuous SpO2 Machine # N 13 Additional RT Notes Other dc per overnight order Intake & Output 02/02/19 02/03/19 02/04/19 06:59 06:59 06:59 Intake Total 2530 3420 Balance 2530 3420 Weight 92.3 kg 92.4 kg Musculoskeletal exam: PRESENT: other - Right hand: Laceration on the thenar incision. Swelling noted along the thenar eminence. No palpable fluctuance. Unable to express fluid from the incision site. Patient lacks two-point discrimination and sharp versus dull touch along the thumb including the dorsal aspect. Hypoesthesia is with intact sensation to light touch index through small finger lacks two-point discrimination. Difficult to ascertain sensory examination secondary to patient's discomfort. Mild swelling on the volar forearm no streaking erythema. No lymphadenopathy. Pain with passive extension of all digits. Results Laboratory Results: 02/03/19 06:27 02/02/19 10:00 02/03/19 06:27 WBC 6.5 RBC 4.41 Hgb 13.3 L Hct 38.0 MCV 86 MCH 30.1 MCHC 35.0 RDW 12.5 Plt Count 285 Seg Neutrophils % 43.0 Lymphocytes % 38.8 Monocytes % 11.1 Eosinophils % 6.0 Basophils % 1.1 Absolute Neutrophils 2.8 Absolute Lymphocytes 2.5 Absolute Monocytes 0.7 Absolute Eosinophils 0.4 Absolute Basophils 0.1 01/31/19 18:26 Hand - Right Gram Stain - Final 01/31/19 18:26 Hand - Right Gram Stain - Final 01/31/19 18:26 Hand - Right Wound Culture - Final Mrsa (Meth Resis Staph Aureus) No Anaerobic Organisms Impressions: Hand X-Ray 01/31/19 10:47 IMPRESSION: 1. NEGATIVE STUDY OF THE RIGHT HAND. Upper Extremity MRI 01/31/19 11:36 IMPRESSION: Cellulitis right thenar eminence with small 8 to 9 mm subcutaneous abscess or hematoma Underlying myositis with diffuse enhancement of the thenar muscles Mild contrast enhancement along the flexor tendon sheath of the index finger and thumb distal to the carpal tunnel. Assessment & Plan - Diagnosis (1) Abscess of right hand Is this a current diagnosis for this admission?: Yes Plan: Postop day 3 status post irrigation debridement right hand palmar/thenar abscess We will continue to follow nfectious recommendations and patient will be transition to IV clindamycin as vancomycin has not been adequate therapeutic which may also be contributing to lack of improvement. However patient's pain i s being somewhat of an issue in the numbness along his thumb index middle finger also are concerning however they are relatively unchanged subjectively or objectively. At this point will continue aggressive elevation will also start the patient on Lyrica along with IV Tylenol which may provide him some improved pain relief. Lastly we will obtain repeat MRI to evaluate for possible fluid collection if present patient may require repeat operative irrigation and debridement which we discussed preoperatively as well.
[2019-02-03] MEDS ORDERED: ZOLPIDEM TARTRATE 5 MG TABLET PO PRN (16:37)
[2019-02-03] MEDS ORDERED: CELECOXIB 200 MG CAPSULE PO SCH (18:00)
[2019-02-03] MEDS ORDERED: PREGABALIN 75 MG CAPSULE PO SCH (18:00)
[2019-02-03] MEDS ORDERED: ACETAMINOPHEN 1,000 MG/100 ML RTUPB IV ONE (21:05)
[2019-02-03] MEDS ORDERED: ZOLPIDEM TARTRATE 5 MG TABLET PO SCH (22:00)
--- NOTE | 2019-02-04 01:29 | RADIOLOGY REPORT (SQ) ---
MR UPPER EXTREMITY WITHOUT THEN WITH IV CONTRAST EXAM DATE: 02/03/2019 00:00 HISTORY: Status post I&D of right hand. Thenar infection. COMPARISON: 01/31/2019 TECHNIQUE: Multiplanar, multisequence MR imaging of the right hand was performed with the administration of intravenous gadolinium. FINDINGS: There has been interval drainage of the subcutaneous abscess along the thenar eminence with a defect extending to the skin surface. There is residual fluid scattered throughout the subcutaneous tissues, but no focal collection is seen. Diffuse myositis of the thenar eminence musculature is seen with enhancement and edema. The flexor pollicis longus tendon courses through the area of infection but appears intact. The remaining tendons are also intact without tenosynovitis. The bone marrow has normal signal characteristics. There is diffuse subcutaneous edema overlying the right hand consistent with cellulitis. IMPRESSION: 1. Interval drainage of right thenar abscess with residual fluid in the subcutaneous tissues. No focal collection is seen however. 2. Unchanged myositis of the surrounding thenar musculature. 3. No fracture or osteomyelitis.
[2019-02-04] MEDS: CLINDAMYCIN 600 MG/D5W RTU 600 MG/50 ML RTUPB IV SCH (05:34)
[2019-02-04] MEDS: OXYCODONE-ACETAMINOPHEN 5-325 MG TABLET PO PRN (08:32)
[2019-02-04 10:45] VITALS: BP 137/84
--- NOTE | 2019-02-11 08:40 | PDOC DISCHARGE SUMMARY ---
General - Admit/Disc Date/PCP Admission Date/Primary Care Provider: 01/31/19 16:13 Discharge Date: 02/03/19 - Discharge Diagnosis (1) Abscess of right hand Is this a current diagnosis for this admission?: Yes - Additional Information Resuscitation Status: Full Code Discharge Diet: As Tolerated Discharge Activity: No Lifting Over 10 Pounds, No Lifting/Push/Pulling Home Medications: Clindamycin HCl [Cleocin 150 mg Capsule] 450 mg PO QID MDD FILLED 02/04 FOR 14 DAY SUPPLY 02/07/19 Oxycodone HCl/Acetaminophen [Percocet 5-325 mg Tablet] 1 tab PO Q6HP PRN MDD FILLED 02/04 FOR 15 DAY SUPPLY 02/07/19 History of Present Illness History of Present Illness: LYNDON LOVE is a 23 year old male Patient is a 23-year-old white male who presents with a right hand abscess without any known traumatic antecedent or penetration. Hospital Course Hospital Course: Patient is admitted by orthopedics and taken to the operating room undergoes an I&D of the right hand. Culture subsequently grow MRSA. Infectious disease is consulted and recommends treatment with clindamycin. Pain control continues to be problematic throughout the patient's admission. Physical Exam Vital Signs: Temp Pulse Resp BP Pulse Ox 36.4 C 96 17 137/84 H 98 02/04/19 09:00 02/04/19 09:00 02/04/19 09:00 02/04/19 09:00 02/04/19 09:00 Pulse Oximeter Continuous Start: 01/31/19 20:32 Freq: RTQ4 Status: Complete Protocol: Document 01/31/19 20:25 [facility] (Rec: 01/31/19 20:34 [facility] [id number]) Pulse Oximetry Assessment Oxygen Saturation (92-100) 98 Oxygen Delivery Method Room Air Fraction of Inspired Oxygen (FIO2) 21 Equipment Usage Initial Set Up Continuous Pulse Oximeter 24 Hour Charge Charge Now Continuous SpO2 Machine # 13 Pulse Oximeter Continuous Start: 01/31/19 19:48 Freq: RTQ4 Status: Complete Protocol: Document 02/01/19 13:06 [facility] [place] (Rec: 02/01/19 13:06 [facility] [id number]) Pulse Oximetry Assessment Oxygen Saturation (92-100) 96 Oxygen Delivery Method Room Air Fraction of Inspired Oxygen (FIO2) 21 Equipment Usage Equipment Discontinued Continuous SpO2 Machine # N 13 Additional RT Notes Other dc per overnight order Physical Exam: Burly young white male in intermittently great distress versus appearing relatively comfortable General appearance: PRESENT: mild distress, well-developed, well-nourished Head exam: PRESENT: normocephalic Respiratory exam: PRESENT: unlabored Cardiovascular exam: PRESENT: RRR Vascular exam: PRESENT: normal capillary refill GI/Abdominal exam: PRESENT: soft Rectal exam: PRESENT: deferred Extremities exam: PRESENT: other - Right hand is wrapped in a clean dry Kerlix d ressing Neurological exam: PRESENT: alert, awake, oriented to person, oriented to place, oriented to time, oriented to situation, CN II-XII grossly intact. ABSENT: motor sensory deficit Psychiatric exam: PRESENT: agitated, anxious Results Laboratory Results: 02/03/19 06:27 02/02/19 10:00 Impressions: Hand X-Ray 01/31/19 10:47 IMPRESSION: 1. NEGATIVE STUDY OF THE RIGHT HAND. Upper Extremity MRI 02/03/19 00:00 IMPRESSION: 1. Interval drainage of right thenar abscess with residual fluid in the subcutaneous tissues. No focal collection is seen however. 2. Unchanged myositis of the surrounding thenar musculature. 3. No fracture or osteomyelitis. Status: Imported from PACS Qualifiers - * PATIENT BEING DISCHARGED WITH ANY OF THE FOLLOWING DIAGNOSIS: No VTE patient discharged on overlapping Therapy?: No Reason(s) for not prescribing Overlap Therapy:: Not indicated Plan Discharge Plan: Patient be discharged home on Percocet, oral clindamycin, and follow-up with Dr. rosas in the [facility] for surgery in 1 week for wound check. Time Spent: Less than 30 Minutes
== END 2019-02-04 09:00 | disposition home health service (06) | DRG 988 ==
LOC: ER 10:26 → EH 16:13 → 2N 20:17 → 4S 02-03 16:08
PROVIDERS: ADMIT Orthopaedic Surgery; ATTEND Orthopaedic Surgery
PROC: 0L970ZZ Drainage of Right Hand Tendon, Open Approach (ICD-10-PCS; 2019-01-31)
PROC: 0L9 Tendons, Drainage (ICD-10-PCS; 2019-01-31)
PROC: 01N50ZZ Release Median Nerve, Open Approach (ICD-10-PCS; principal; 2019-01-31 18:15)
DX: L02.511 Cutaneous abscess of right hand (principal); L03.113 Cellulitis of right upper limb; A49.02 Methicillin resistant Staphylococcus aureus infection, unspecified site; M60.841 Other myositis, right hand; M65.841 Other synovitis and tenosynovitis, right hand; G56.01 Carpal tunnel syndrome, right upper limb; K21.9 Gastro-esophageal reflux disease without esophagitis; M79.641 Pain in right hand; F17.210 Nicotine dependence, cigarettes, uncomplicated
CPT/HCPCS: 00400; 36415; 80053; 80202; 82565; 85025; 85652; 86140; 87040; 87070; 87075; 87077; 87186; 87205; 94762; 96365; 96375; 99285; A9576; J0131; J0330; J1170; J2250; J2270; J2405; J2543; J2704; J3010; J3370; J3490; J7060